=== PATIENT | female | born 2000 | race Caucasian/White ===

== ENCOUNTER 2019-10-08 01:17 | Observation (INO) | payer BC ==
[~2019-10-08] VITALS: Ht 167.6 cm; Wt 62.5 kg
[2019-10-08 01:36] LABS: BASO % 0.5 % (0.0-2.0); EOS # 0.1 (0.0-0.7); EOS % 1.4 % (0-4.0); GRAN # 4.9 (1.4-6.5); GRAN % 56.3 % (42.2-75.2); HEMATOCRIT 39.9 % (35.0-45.0); HEMOGLOBIN 13.4 g/dl (12.0-15.0); LYMPH # 3.3 (1.2-3.4); LYMPH % 37.5 % (20.0-51.0); MEAN CELL VOLUME 89 fl (80.0-95.0); MEAN CORPUSCULAR HEMOGLOBIN 30 pg (26.0-32.0); MEAN CORPUSCULAR HGB CONC 34 g/dl (33.0-37.0); MEAN PLATELET VOLUME 10.5 fl (7.4-10.4); MONO # 0.4 (0.1-0.6); PLATELET COUNT 344 K/mm3 (130-400); REDCELL DISTRIBUTION WIDTH-CV 12.6 % (11.5-14.5)
[2019-10-08 01:41] LABS: INR 1.1 (0.8-3.0)
[2019-10-08 01:44] LABS: PARTIAL THROMBOPLASTIN TIME 29.8 SECONDS (26.0-37.0)
[2019-10-08 01:46] LABS: ALBUMIN 4.8 gm/dL (3.5-5.0); BILIRUBIN,TOTAL 0.5 mg/dL (0.0-1.0); CALCIUM 9.4 mg/dL (8.4-10.2); CREATININE, serum 0.58 (0.52-1.25); POTASSIUM 3.7 mmol/L (3.4-5.0); TOTAL PROTEIN 7.9 gm/dL (6.4-8.2)
[2019-10-08] MEDS ORDERED: NUVIGIL250 MG PO (02:30)
[2019-10-08] MEDS ORDERED: BUSPAR5 MG PO (02:31)
[2019-10-08 03:29] VITALS: BP 104/63; PULSE 90; TEMP 98.1
[2019-10-08] MEDS ORDERED: CYMBALTA 20MG20 MG PO (03:38)
--- NOTE | 2019-10-08 03:51 | NUR ---
Received report from FRANKIE Maki. Pt arrived via stretcher. Pt currently lying in bed. Did state that she is very tired. Pt was able to ambulate to the rest room. Pt has her call light within reach and he bed is in lowest position. Pt stated that she has no concerns at this time.
[2019-10-08 04:30] LABS: TRICYCLIC ANTIDEPRESS URINE NEGATIVE
--- NOTE | 2019-10-08 07:39 | NUR ---
Reported off to FRANKIE Byrd. Pt is currently eating breakfast in her room . Her dad Too was contacted this morning to give an update on how she was doing. Pt has her call light within reach. Her Dad did inform me that he has her four digit code and will call to check on her throughout the day.
[2019-10-08 08:00] VITALS: BP 100/56; PULSE 92; TEMP 98.6
--- NOTE | 2019-10-08 08:00 | NUR ---
Dr Giordano notified of consult.
[2019-10-08 08:02] LABS: CALCIUM 8.7 mg/dL (8.4-10.2); CREATININE, serum 0.5 (0.52-1.25); POTASSIUM 3.8 mmol/L (3.4-5.0)
--- NOTE | 2019-10-08 09:30 | NUR ---
Patient alert and oriented, answers questions appropriately. See assessment. Heart tones strong and even, pulses palpable. No c/o chest or jaw pain. No other c/o at this time.
--- NOTE | 2019-10-08 10:17 | NUR ---
Dr Giordano here to see patient..
[2019-10-08 12:33] VITALS: BP 100/57; PULSE 95; TEMP 98.9
[2019-10-08 15:35] VITALS: BP 97/61; PULSE 85; TEMP 97.9
[2019-10-08] MEDS ORDERED: TOPROL XL 25MG25 MG PO (16:33)
--- NOTE | 2019-10-08 18:25 | NUR ---
Reviewed discharge instructions with the patient. Questions answered. Patient verbalizes understanding to all and signs discharge paperwork. Provided discharge packet to the patient. Patient will push call light when she is done getting dressed and her ride is in the ER entrance to pick her up.
--- NOTE | 2019-10-08 18:43 | NUR ---
Discharge instructions reviewed with patient, verbalized understanding. Discharged ambulatory to auto/home with family at [id number].
== END 2019-10-08 18:42 | disposition home or self-care (01) ==
LOC: COL.ER 01:17 → SURG 02:02
PROVIDERS: Emergency Medicine; Physician Assistant; ADMIT Internal Medicine
DX: I47.1 Supraventricular tachycardia (principal); E87.1 Hypo-osmolality and hyponatremia; F10.129 Alcohol abuse with intoxication, unspecified; E87.2 Acidosis; Y90.6 Blood alcohol level of 120-199 mg/100 ml; F41.9 Anxiety disorder, unspecified; F32.9 Major depressive disorder, single episode, unspecified; G47.419 Narcolepsy without cataplexy; Z88.6 Allergy status to analgesic agent
CPT/HCPCS: J0153; J2060; J7030; Q9967

== ENCOUNTER → 2019-11-29 | Outpatient (CLI) | payer BC ==
[~2019-11-29] MED LIST: BUSPAR5 MG PO; CYMBALTA 20MG20 MG PO; NUVIGIL250 MG PO; TOPROL XL 25MG25 MG PO
== END ==
LOC: ZCOL.LAB 14:28
DX: U07.1 COVID-19 (principal)